=== PATIENT | female | born 1985 | race Caucasian/White ===

== ENCOUNTER 2016-09-04 18:05 | Emergency (ER) | payer OTHER ==
[~2016-09-04] VITALS: Ht 160 cm; Wt 86.0 kg
[~2016-09-04 18:05] MED LIST: AUGMENTIN875 MG PO; BUSPIRONE HCL7.5 MG PO; CELEXA20 MG PO; CELEXA40 MG PO; CITALOPRAM HBR20 MG PO; FLONASE16 G1 BOTH NARES; LEVOTHYROXINE150 MCG PO; MOTRIN600 MG PO; MUCUS ER600 MG PO; NAPROSYN500 MG PO; PERCOCET 5/31 TABLET PO; SYNTHROID125 MCG PO; SYNTHROID50 MCG PO; TORADOL10 MG PO; ULTRAM50 MG PO; ZYRTEC10 M2 PO
[2016-09-04 18:27] LABS: HEMATOCRIT 46.9 % (36.0-46.0); MCH 32.3 PG (29.0-34.0); MCHC 33.9 G/DL (30.0-36.0); MCV 95.1 FL (83-99); MEAN PLAT.VOLUME 9.9 uM^3 (9.5-12.4); PLATELET COUNT 356 K/uL (156-360); RBC DIS.WIDTH-CV 11.9 % (11.8-14.6); RBC DIS.WIDTH-SD 41.5 % (39-53); RED BLOOD COUNT 4.93 M/uL (3.80-5.20)
[2016-09-04 18:36] LABS: CHLORIDE 105 mEq/L (99-109); POTASSIUM 4.4 mEq/L (3.7-5.4); SODIUM 139 mEq/L (136-147)
[2016-09-04 18:38] LABS: GLUCOSE 96 mg/dL (70-99)
[2016-09-04 18:40] LABS: ANION GAP 11 MEQ/L (2-14); TOTAL BILIRUBIN 0.3 mg/dL (0.0-1.0)
[2016-09-04 18:42] LABS: ALKALINE PHOSPHATASE 83 IU/L (3-129); GFR ESTIMATE (CALCULATED) > 59 mL/min/
[2016-09-04 18:43] LABS: UREA NITROGEN (BUN) 8 mg/dL (9-23)
[2016-09-04 18:45] LABS: ADD MIUA? YES; BILIRUBIN NEGATIVE; BLOOD NEGATIVE; COLOR COLORLESS ((YELLOW)); GLUCOSE (STRIP) NEGATIVE; KETONES NEGATIVE; LEUKOCYTES TRACE; NITRITE NEGATIVE; PROTEIN (STRIP) NEGATIVE; SPECIFIC GRAVITY 1.004 (1.000-1.030); UROBILINOGEN 0.2 MG/DL (0.2-1.0)
[2016-09-04 18:48] LABS: BACTERIA RARE /HPF; EPITHELIAL CELLS RARE /HPF; MUCUS NONE SEEN /LPF; RED BLOOD CELLS 0-5 /HPF (0-5); UCUL ADDED? NO; WHITE BLOOD CELLS 0-5 /HPF (0-5)
[2016-09-04 18:50] LABS: QUANTITATIVE HCG < 4.0 MIU/ML
[2016-09-04 20:20] LABS: LIPASE 15 U/L (1.0-51.0)
[2016-09-04] MEDS ORDERED: PEPCID20 MG PO (22:23)
[2016-09-04] MEDS ORDERED: CARAFATE1 GM PO (22:23)
[2016-09-04 22:35] VITALS: BP 129/92
== END 2016-09-04 22:36 | disposition home or self-care (01) ==
LOC: EME 18:05
DX: R10.10 Upper abdominal pain, unspecified (principal); M54.9 Dorsalgia, unspecified; F17.200 Nicotine dependence, unspecified, uncomplicated
CPT/HCPCS: 74176; 80053; 81003; 83690; 84702; 85027; 99281; 99284; J1885

== ENCOUNTER 2017-01-11 00:14 | Emergency (ER) | payer OTHER ==
[~2017-01-11] VITALS: Ht 162.6 cm; Wt 86.3 kg
[~2017-01-11 00:14] MED LIST changes: +CARAFATE1 GM PO; +PEPCID20 MG PO
[2017-01-11 00:18] VITALS: BP 134/89
[2017-01-11 01:02] LABS: HEMATOCRIT 40.4 % (36.0-46.0); MCH 32.2 PG (29.0-34.0); MCHC 34.4 G/DL (30.0-36.0); MCV 93.5 FL (83-99); MEAN PLAT.VOLUME 10.6 uM^3 (9.5-12.4); PLATELET COUNT 295 K/uL (156-360); RBC DIS.WIDTH-CV 11.9 % (11.8-14.6); RBC DIS.WIDTH-SD 41.4 % (39-53); RED BLOOD COUNT 4.32 M/uL (3.80-5.20); WHITE BLOOD COUNT 20.4 K/uL (4.1-10.2)
[2017-01-11 03:17] LABS: CHLORIDE 107 MEQ/L (99-109); GFR ESTIMATE (CALCULATED) > 59 mL/min/; GLUCOSE 97 mg/dL (70-99); POTASSIUM 3.5 MEQ/L (3.7-5.4); SODIUM 140 MEQ/L (136-147); UREA NITROGEN (BUN) 5 mg/dL (9-23)
== END 2017-01-11 03:41 | disposition home or self-care (01) ==
LOC: EME 00:14
DX: J20.9 Acute bronchitis, unspecified (principal); K21.9 Gastro-esophageal reflux disease without esophagitis; E03.9 Hypothyroidism, unspecified; F32.9 Major depressive disorder, single episode, unspecified; F20.9 Schizophrenia, unspecified; F17.200 Nicotine dependence, unspecified, uncomplicated
CPT/HCPCS: 71020; 80048; 85027; 99281; 99284

== ENCOUNTER 2017-02-21 22:11 | Emergency (ER) | payer OTHER ==
[~2017-02-21] VITALS: Ht 157.5 cm; Wt 87.2 kg
[2017-02-21 23:51] VITALS: BP 123/66
== END 2017-02-21 23:51 | disposition home or self-care (01) ==
LOC: EME 22:11 → EXP 22:11
DX: S93.401A Sprain of unspecified ligament of right ankle, initial encounter (principal); X50.1XXA Overexertion from prolonged static or awkward postures, initial encounter
CPT/HCPCS: 73610; 99281; 99284

== ENCOUNTER 2017-03-05 03:58 | Emergency (ER) | payer OTHER ==
[~2017-03-05] VITALS: Ht 160 cm; Wt 88.2 kg
[2017-03-05 05:24] VITALS: BP 110/88
== END 2017-03-05 05:24 | disposition home or self-care (01) ==
LOC: EME 03:58
DX: L50.9 Urticaria, unspecified (principal); R22.1 Localized swelling, mass and lump, neck; T39.315A Adverse effect of propionic acid derivatives, initial encounter; E03.9 Hypothyroidism, unspecified; K21.9 Gastro-esophageal reflux disease without esophagitis; F20.9 Schizophrenia, unspecified; F17.200 Nicotine dependence, unspecified, uncomplicated
CPT/HCPCS: 99281; 99284

== ENCOUNTER 2017-03-30 05:27 | Day surgery (SDC) | payer OTHER ==
[~2017-03-30] VITALS: Ht 160 cm; Wt 88.0 kg
[~2017-03-30 05:27] MED LIST changes: +RISPERDAL0.25 MG PO; +SYNTHROID150 MCG PO
[2017-03-30 06:14] VITALS: BP 123/77
[2017-03-30] MEDS ORDERED: PERCOCET 5/31 TABLET PO (08:18)
[2017-03-30 09:11] VITALS: BP 134/84
[2017-03-30 10:22] VITALS: BP 127/77
== END 2017-03-30 10:25 | disposition home or self-care (01) ==
LOC: SDC 05:27
PROC: 0UBC7ZX Excision of Cervix, Via Natural or Artificial Opening, Diagnostic (ICD-10-PCS; principal; 2017-03-30)
DX: N87.1 Moderate cervical dysplasia (principal); G47.33 Obstructive sleep apnea (adult) (pediatric); E03.9 Hypothyroidism, unspecified; F32.9 Major depressive disorder, single episode, unspecified; F20.0 Paranoid schizophrenia; F17.200 Nicotine dependence, unspecified, uncomplicated; Z88.2 Allergy status to sulfonamides
CPT/HCPCS: 88307; J0131; J1100; J1885; J2250; J2405; J3010

== ENCOUNTER 2017-06-01 11:18 | Emergency (ER) | payer OTHER ==
[~2017-06-01] VITALS: Ht 160 cm; Wt 91.6 kg
[2017-06-01 12:28] LABS: ADD MIUA? YES; BILIRUBIN NEGATIVE; BLOOD SMALL; COLOR YELLOW ((YELLOW)); GLUCOSE (STRIP) NEGATIVE; KETONES NEGATIVE; LEUKOCYTES NEGATIVE; NITRITE NEGATIVE; PROTEIN (STRIP) NEGATIVE; SPECIFIC GRAVITY 1.011 (1.000-1.030); UROBILINOGEN 0.2 MG/DL (0.2-1.0)
[2017-06-01 12:32] LABS: BACTERIA RARE /HPF; EPITHELIAL CELLS RARE /HPF; MUCUS TRACE /LPF; RED BLOOD CELLS 0-5 /HPF (0-5); WHITE BLOOD CELLS 0-5 /HPF (0-5)
[2017-06-01 12:36] LABS: AMPHETAMINE NEGATIVE (500 ng/mL); BARBITURATES NEGATIVE (200 ng/mL); BENZODIAZEPINES NEGATIVE (150 ng/mL); COCAINE NEGATIVE (150 ng/mL); INTERNAL CONTROLS VALID? YES; METHADONE NEGATIVE (200 ng/mL); METHAMPHETAMINE NEGATIVE (500 ng/mL); OPIATES (MORPHINE) NEGATIVE (100 ng/mL); OXYCODONE NEGATIVE (100 ng/mL); PHENCYCLIDINE NEGATIVE (25 ng/mL); PROPOXYPHENE NEGATIVE (300 ng/mL); THC CANNABINOIDS NEGATIVE (50 ng/mL); TRICYCLIC ANTIDEPRESSANTS NEGATIVE (300 ng/mL)
[2017-06-01 12:52] LABS: HEMATOCRIT 40.2 % (36.0-46.0); MCH 34.5 PG (29.0-34.0); MCHC 35.1 G/DL (30.0-36.0); MCV 98.3 FL (83-99); MEAN PLAT.VOLUME 10.4 uM^3 (9.5-12.4); PLATELET COUNT 299 K/uL (156-360); RBC DIS.WIDTH-SD 43.3 % (39-53); RED BLOOD COUNT 4.09 M/uL (3.80-5.20); WHITE BLOOD COUNT 13.6 K/uL (4.1-10.2)
[2017-06-01 13:02] LABS: CHLORIDE 106 mEq/L (99-109); POTASSIUM 4.1 mEq/L (3.7-5.4); SODIUM 141 mEq/L (136-147)
[2017-06-01 13:05] LABS: GLUCOSE 97 mg/dL (70-99)
[2017-06-01 13:06] LABS: ANION GAP 12 MEQ/L (2-14); TOTAL BILIRUBIN 0.2 mg/dL (0.0-1.0)
[2017-06-01 13:08] LABS: ALKALINE PHOSPHATASE 88 IU/L (3-129); GFR ESTIMATE (CALCULATED) > 59 mL/min/; SERUM ETHYL ALCOHOL < 10 mg/dL
[2017-06-01 13:09] LABS: UREA NITROGEN (BUN) 9 mg/dL (9-23)
[2017-06-01 13:20] LABS: QUANTITATIVE HCG < 4.0 MIU/ML
[2017-06-01 14:22] VITALS: BP 108/67
== END 2017-06-01 14:22 | disposition home or self-care (01) ==
LOC: EME 11:18
PROVIDERS: Nurse Practitioner Family
DX: R20.2 Paresthesia of skin (principal); T50.905A Adverse effect of unspecified drugs, medicaments and biological substances, initial encounter; R03.0 Elevated blood-pressure reading, without diagnosis of hypertension; E03.9 Hypothyroidism, unspecified; F17.200 Nicotine dependence, unspecified, uncomplicated
CPT/HCPCS: 80053; 81003; 84439; 84443; 84702; 85027; 93005; 99281; 99284; G0480

== ENCOUNTER 2017-07-15 09:41 | Emergency (ER) | payer OTHER ==
[~2017-07-15] VITALS: Ht 160 cm; Wt 93.1 kg
[2017-07-15 10:29] LABS: BILIRUBIN NEGATIVE; BLOOD NEGATIVE; COLOR YELLOW ((YELLOW)); GLUCOSE (STRIP) NEGATIVE; KETONES NEGATIVE; LEUKOCYTES NEGATIVE; NITRITE NEGATIVE; PROTEIN (STRIP) NEGATIVE; SPECIFIC GRAVITY 1.026 (1.000-1.030); UROBILINOGEN 0.2 MG/DL (0.2-1.0)
[2017-07-15 10:30] LABS: APPEARANCE CLEAR ((CLEAR)); UCUL ADDED? NO
[2017-07-15] MEDS ORDERED: TESSALON200 MG PO (11:09)
[2017-07-15 11:33] VITALS: BP 124/77
== END 2017-07-15 11:34 | disposition home or self-care (01) ==
LOC: EME 09:41
PROVIDERS: Physician Assistant
DX: J06.9 Acute upper respiratory infection, unspecified (principal); M54.5 Low back pain; F17.200 Nicotine dependence, unspecified, uncomplicated
CPT/HCPCS: 71046; 81003; 99281; 99284

== ENCOUNTER 2017-12-20 17:24 | Emergency (ER) | payer OTHER ==
[~2017-12-20] VITALS: Ht 160 cm; Wt 91.5 kg
[~2017-12-20 17:24] MED LIST changes: +TESSALON200 MG PO
[2017-12-20 18:56] LABS: APPEARANCE SL.HAZY ((CLEAR)); BILIRUBIN NEGATIVE; BLOOD LARGE; COLOR AMBER ((YELLOW)); GLUCOSE (STRIP) NEGATIVE; KETONES NEGATIVE; LEUKOCYTES NEGATIVE; NITRITE NEGATIVE; PROTEIN (STRIP) 100; SPECIFIC GRAVITY 1.033 (1.000-1.030)
[2017-12-20 19:14] LABS: HEMATOCRIT 40.9 % (36.0-46.0); HEMOGLOBIN 14.3 G/DL (11.9-15.5); MCH 34.5 PG (29.0-34.0); MCV 98.6 FL (83-99); PLATELET COUNT 275 K/uL (156-360); RBC DIS.WIDTH-CV 12.3 % (11.8-14.6); RBC DIS.WIDTH-SD 44.8 % (39-53); RED BLOOD COUNT 4.15 M/uL (3.80-5.20); WHITE BLOOD COUNT 16.8 K/uL (4.1-10.2)
[2017-12-20 19:27] LABS: BACTERIA 2+ /HPF; EPITHELIAL CELLS 1+ /HPF; MUCUS 1+ /LPF; UCUL ADDED? YES; WHITE BLOOD CELLS 0-5 /HPF (0-5)
[2017-12-20 19:35] LABS: ALBUMIN 4.7 g/dL (3.2-4.8)
[2017-12-20 19:36] LABS: CHLORIDE 104 mEq/L (99-109); POTASSIUM 4.5 mEq/L (3.7-5.4); SODIUM 135 mEq/L (136-147)
[2017-12-20 19:38] LABS: GLUCOSE 144 mg/dL (70-99); TOTAL PROTEIN 7.6 g/dL (6.4-8.3)
[2017-12-20 19:40] LABS: TOTAL BILIRUBIN 0.5 mg/dL (0.0-1.0)
[2017-12-20 19:41] LABS: ALKALINE PHOSPHATASE 64 IU/L (3-129)
[2017-12-20 19:42] LABS: CREATININE 0.8 mg/dL (0.6-1.3); GFR ESTIMATE (CALCULATED) > 59 mL/min/
[2017-12-20 19:43] LABS: AST (GOT) 47 IU/L (2-34); UREA NITROGEN (BUN) 7 mg/dL (9-23)
[2017-12-20 19:44] LABS: ALT (GPT) 53 IU/L (3-49)
[2017-12-20 19:50] LABS: QUANTITATIVE HCG 187.3 MIU/ML
[2017-12-21] MEDS ORDERED: KEFLEX500 MG PO (01:00)
[2017-12-21] MEDS ORDERED: ZOFRAN4 MG PO (01:00)
[2017-12-21] MEDS ORDERED: PERCOCET 5/31 TABLET PO (01:00)
[2017-12-21 01:31] VITALS: BP 128/78
[2017-12-21 01:51] LABS: SOURCE SWAB
== END 2017-12-21 01:32 | disposition home or self-care (01) ==
LOC: RME 17:24 → EME 17:24 → RME 12-21 01:32
PROVIDERS: Physician Assistant
DX: O46.91 Antepartum hemorrhage, unspecified, first trimester (principal); O23.01 Infections of kidney in pregnancy, first trimester; O99.111 Other diseases of the blood and blood-forming organs and certain disorders involving the immune mechanism complicating pregnancy, first trimester; R73.9 Hyperglycemia, unspecified; O99.282 Endocrine, nutritional and metabolic diseases complicating pregnancy, second trimester; E03.9 Hypothyroidism, unspecified; O99.342 Other mental disorders complicating pregnancy, second trimester; F41.9 Anxiety disorder, unspecified; F32.9 Major depressive disorder, single episode, unspecified; F20.9 Schizophrenia, unspecified; O99.332 Smoking (tobacco) complicating pregnancy, second trimester; F17.200 Nicotine dependence, unspecified, uncomplicated; Z3A.00 Weeks of gestation of pregnancy not specified; Z90.49 Acquired absence of other specified parts of digestive tract; Z88.6 Allergy status to analgesic agent; Z88.2 Allergy status to sulfonamides; Z91.048 Other nonmedicinal substance allergy status
CPT/HCPCS: 76770; 76801; 80053; 81003; 84702; 85027; 87086; 87210; 87491; 87591; 99281; 99285; J0696; J2405; J3010; J7030

== ENCOUNTER 2018-01-03 10:15 | Emergency (ER) | payer OTHER ==
[~2018-01-03] VITALS: Ht 160 cm; Wt 90.9 kg
[~2018-01-03 10:15] MED LIST changes: +KEFLEX500 MG PO; +ZOFRAN4 MG PO
[2018-01-03 10:54] LABS: HEMATOCRIT 37.6 % (36.0-46.0); HEMOGLOBIN 13.4 G/DL (11.9-15.5); MCH 34.2 PG (29.0-34.0); MCHC 35.6 G/DL (30.0-36.0); MCV 95.9 FL (83-99); PLATELET COUNT 344 K/uL (156-360); RBC DIS.WIDTH-CV 11.8 % (11.8-14.6); RBC DIS.WIDTH-SD 41.1 % (39-53); RED BLOOD COUNT 3.92 M/uL (3.80-5.20); WHITE BLOOD COUNT 12.3 K/uL (4.1-10.2)
[2018-01-03 11:02] LABS: APPEARANCE CLEAR ((CLEAR)); BILIRUBIN NEGATIVE; BLOOD NEGATIVE; COLOR STRAW ((YELLOW)); GLUCOSE (STRIP) NEGATIVE; KETONES NEGATIVE; LEUKOCYTES NEGATIVE; NITRITE NEGATIVE; PROTEIN (STRIP) NEGATIVE; SPECIFIC GRAVITY 1.004 (1.000-1.030); UROBILINOGEN 0.2 MG/DL (0.2-1.0)
[2018-01-03 11:02] LABS: ALBUMIN 4.3 g/dL (3.2-4.8); CHLORIDE 106 mEq/L (99-109); POTASSIUM 3.4 mEq/L (3.7-5.4); SODIUM 137 mEq/L (136-147)
[2018-01-03 11:04] LABS: GLUCOSE 146 mg/dL (70-99); TOTAL PROTEIN 7.1 g/dL (6.4-8.3)
[2018-01-03 11:06] LABS: TOTAL BILIRUBIN 0.2 mg/dL (0.0-1.0)
[2018-01-03 11:08] LABS: ALKALINE PHOSPHATASE 68 IU/L (3-129); CREATININE 0.8 mg/dL (0.6-1.3); GFR ESTIMATE (CALCULATED) > 59 mL/min/
[2018-01-03 11:09] LABS: UREA NITROGEN (BUN) 6 mg/dL (9-23)
[2018-01-03 11:10] LABS: AST (GOT) 12 IU/L (2-34)
[2018-01-03 11:11] LABS: ALT (GPT) 23 IU/L (3-49)
[2018-01-03 11:17] LABS: QUANTITATIVE HCG < 4.0 MIU/ML
[2018-01-03] MEDS ORDERED: ZOFRAN ODT4 MG PO (13:49)
[2018-01-03] MEDS ORDERED: BENTYL10 MG PO (13:49)
[2018-01-03 14:09] VITALS: BP 117/73
== END 2018-01-03 14:10 | disposition home or self-care (01) ==
LOC: EME 10:15
PROVIDERS: Nurse Practitioner Family
DX: R10.84 Generalized abdominal pain (principal); R11.0 Nausea; N93.9 Abnormal uterine and vaginal bleeding, unspecified; Z87.59 Personal history of other complications of pregnancy, childbirth and the puerperium; E03.9 Hypothyroidism, unspecified; F17.200 Nicotine dependence, unspecified, uncomplicated; F32.9 Major depressive disorder, single episode, unspecified; F41.9 Anxiety disorder, unspecified; Z90.49 Acquired absence of other specified parts of digestive tract; Z88.6 Allergy status to analgesic agent; Z88.2 Allergy status to sulfonamides
CPT/HCPCS: 74177; 80053; 81003; 84702; 85027; 99281; 99284; J2270; J2405; J3010; J7030